=== PATIENT | female | born 1950 | race Caucasian/White ===

== ENCOUNTER 2017-10-30 14:12 | Emergency (ER) | payer OTHER, SELFPAY ==
--- NOTE | 2017-10-30 14:17 | DI.RAD.S_ITS ---
PROCEDURE: XR KNEE RT 3V INDICATIONS: pain TECHNIQUE: 3 views of the knee were acquired. COMPARISON: None. FINDINGS: Bones: No fractures or dislocations. No suspicious bony lesions. Mild medial and patellofemoral degenerative compartment narrowing. Soft tissues: No joint effusion. No suspicious soft tissue calcifications. IMPRESSION: No visualized acute fracture or dislocation. However, if clinical concern and/or pain persist, short interval imaging followup in 7-10 days is recommended, as occult injury cannot be definitively excluded. Dictated by: Judith Francis M.D. on 10/30/2017 at 16:41 Approved by: Judith Francis M.D. on 10/30/2017 at 16:42
[2017-10-30 14:23] VITALS: BP 130/74; PULSE 61; RESP 14; O2SAT 99; BMI 23.3
--- NOTE | 2017-10-30 14:29 | ED.LOWEXIN ---
HPI - Extremity Injury (Lower) <Anabel Ballesteros PA-C - Last Filed: 10/30/17 21:45> General Chief Complaint: Extremity Injury, Lower Stated Complaint: RT LEG COLLAPSED Time Seen by Provider: 10/30/17 14:28 Source: patient Mode of arrival: ambulatory Limitations: no limitations History of Present Illness HPI Narrative: This 67-year-old female was walking on a gentle trail with her dogs when she felt like her right knee buckled ?like somebody crunched my knee? and then she fell back onto her bottom. She denies any other pain or injury, but since then she states that her knee is painful with bearing weight and feels unstable. She states she can walk if she keeps her leg perfectly straight. She has taken Aleve and Tylenol prior to arrival. Related Data Allergies Allergy/AdvReac Type Severity Reaction Status Date / Time No Known Drug Allergies Allergy Verified 10/30/17 14:23 Exam <Anabel Ballesteros PA-C - Last Filed: 10/30/17 21:45> Narrative Exam Narrative: GENERAL APPEARANCE: Patient sitting comfortably, in no distress. LUNGS: Clear to auscultation bilaterally. HEART: Rate and rhythm regular without murmur, normal S1 and S2, no S3 or S4. MUSCULOSKELETAL: Right knee there is no effusion. She is tender just superior to the patella, a little bit at the lateral joint line, and also in the popliteal space. Markedly limited range of motion secondary to tenderness, she is able to fully extend. She will not allow active range of motion or testing for laxity. No tenderness about the ankle or foot EXTREMITIES: No cyanosis or edema, no calf tenderness, right pedal pulses intact Initial Vital Signs Initial Vital Signs: Vital Signs Pulse Rate 61 10/30/17 14:23 Respiratory Rate 14 10/30/17 14:23 Blood Pressure 130/74 H 10/30/17 14:23 Pulse Oximetry 99 10/30/17 14:23 <Flaco Houser DO - Last Filed: 10/31/17 04:51> Initial Vital Signs Initial Vital Signs: Vital Signs Pulse Rate 61 10/30/17 14:23 Respiratory Rate 14 10/30/17 14:23 Blood Pressure 130/74 H 10/30/17 14:23 Pulse Oximetry 99 10/30/17 14:23 Course <Anabel Ballesteros PA-C - Last Filed: 10/30/17 21:45> Additional Information: Patient is able to ambulate with knee immobilizer Orders Ordered: ED Orders 10/30/17 14:17 XR knee RT 3V Stat Vital Signs - 8 hr 10/30/17 14:23 10/30/17 17:33 Pulse Rate 61 62 Respiratory Rate 14 14 Blood Pressure 130/74 H 130/84 H Pulse Oximetry 99 100 <Flaco Houser DO - Last Filed: 10/31/17 04:51> Orders Ordered: ED Orders 10/30/17 14:17 XR knee RT 3V Stat Vital Signs - 8 hr 10/30/17 14:23 10/30/17 17:33 Pulse Rate 61 62 Respiratory Rate 14 14 Blood Pressure 130/74 H 130/84 H Pulse Oximetry 99 100 MDM - Extremity Injury (Lower) <Anabel Ballesteros PA-C - Last Filed: 10/30/17 21:45> Imaging Data extremity: Radiologist's impression: [place] [address] XRay Report Signed Patient: VIVIAN GUZMAN MR#: [id number] : 1950 Acct:[id number] Age/Sex: 67 / F Date of Service: 10/30/17 Loc: ED Accession Number: [id number] Procedure: XR knee RT 3V Ordering Provider: Osmin Macias M.D. PROCEDURE: XR KNEE RT 3V INDICATIONS: pain TECHNIQUE: 3 views of the knee were acquired. COMPARISON: None. FINDINGS: Bones: No fractures or dislocations. No suspicious bony lesions. Mild medial and patellofemoral degenerative compartment narrowing. Soft tissues: No joint effusion. No suspicious soft tissue calcifications. IMPRESSION: No visualized acute fracture or dislocation. However, if clinical concern and/or pain persist, short interval imaging followup in 7-10 days is recommended, as occult injury cannot be definitively excluded. Dictated by: Judith Francis M.D. on 10/30/2017 at 16:41 Approved by: Judith Francis M.D. on 10/30/2017 at 16:42 Discharge Plan Departure Patient Disposition: Home, Self-Care Clinical Impression: Acute internal derangement of knee Discharge Date/Time: 10/30/17 17:35 Interventions: ED Discharge Assessment Last Done: 10/30/17 17:33 Instructions: DI for Knee Sprain, How to Use a Knee Immobilizer Activity Restrictions/Additional Instructions: I have given you instructions for knee sprain, however I do think it is possible given the instability nor knee that you have a soft tissue injury such as a ligament or meniscal tear. Given your tenderness today, it is difficult to thoroughly evaluate her knee. That will probably be easier in a few days when the acute pain is better. Please continue your Aleve and Tylenol. Use ice as needed. Gentle walking on flat ground is okay as you tolerate, but use the knee immobilizer. Return over the weekend if you have any acutely worsening symptoms, otherwise see your PCP early next week <Flaco Houser DO - Last Filed: 10/31/17 04:51> Sign Out Provider Sign Out Attestation: I was immediately available in the department for consultation. Documentation has been reviewed. I agree with assessment and plan.
--- NOTE | 2017-10-30 16:16 | PC.NURSE ---
Pt states she was hiking this morning and all of the sudden her knee just buckled underneath her. She has no pain when at rest, but if she attempts to bear weight or move the right extremity, she experiences 10/10 pain. There is no swelling or obvious signs of injury to the knee. She states the pain is in the back of the knee/upper calf.
[2017-10-30 17:33] VITALS: BP 130/84; PULSE 62; RESP 14; O2SAT 100
== END 2017-10-30 17:35 | disposition home or self-care (01) ==
PROVIDERS: Emergency Provider Internal Medicine
DX: M23.91 Unspecified internal derangement of right knee (principal)
CPT/HCPCS: 73562; 99283